=== PATIENT | female | born 1960 ===

== ENCOUNTER 2021-01-20 08:10 | Outpatient (CLI) | payer OTHER | END 2021-01-20 08:11 | disposition home or self-care (01) | LOC: NUCLEAR 08:10 | PROVIDERS: ATTEND Internal Medicine Cardiovascular Disease | DX: G45.9 Transient cerebral ischemic attack, unspecified (principal); I10 Essential (primary) hypertension; M81.0 Age-related osteoporosis without current pathological fracture; E55.9 Vitamin D deficiency, unspecified; I49.8 Other specified cardiac arrhythmias ==